=== PATIENT | female | born 1965 | race Caucasian/White ===

== ENCOUNTER 2020-09-01 14:54 | Outpatient (REF) | payer MEDICAID, SELFPAY ==
--- NOTE | 2020-09-01 14:20 | PAPFT_PTH ---
PATIENT: Leandro Boo LOC: [facility] U#:[id number] AGE/SX: 55/F ROOM: RE09/01/[address]: Mary Frey : 1965 BED: DIS: 09/01/2020 SPEC #: [id number] RECD: 09/02/20 13:06 STATUS: SHASHANK REOra #: [id number] LIZETT: 09/01/20 14:[address]: Mary Frey DEPT: [facility] Cytology RECD BY: Aileen Moreno Tissues: 1 - CX/ENDOCX FOR PAP SMEARS Procedures: PAP THIN PREP/UVM Screening HPV DNA PROBE Comments: [id number]
== END 2020-09-01 14:55 | disposition home or self-care (01) ==
LOC: NCHCN 14:54
PROVIDERS: PCP Family Medicine; Visit Provider Family Medicine
DX: Z12.4 Encounter for screening for malignant neoplasm of cervix (principal); Z11.51 Encounter for screening for human papillomavirus (HPV)
CPT/HCPCS: 88142; 87624

== ENCOUNTER 2021-10-22 08:48 | Outpatient (CLI) | payer MEDICAID, SELFPAY ==
--- NOTE | 2021-10-22 08:30 | DI.RAD_ITS ---
Exam(s) XR PELVIS AP EXAM: XR PELVIS AP CLINICAL HISTORY: THR planning. TECHNIQUE: 2D digital imaging was performed. One view is obtained. COMPARISON: CR XR HIP RT 2-3V* from 04/16/2021 FINDINGS: BONES: No acute fracture is present. No bony destructive lesion is seen. JOINTS: No dislocation present. There again seen advanced degenerative changes of the right hip with near complete loss of the superior joint space and subchondral cysts particularly in the acetabulum. The left hip is well maintained. Sclerotic changes are again seen at the symphysis pubis likely ref lecting osteitis pubis. SOFT TISSUE: Normal. IMPRESSION: Stable advanced degenerative changes of the right hip. DATA REPOSITORY: RADIATION DOSE DELIVERED:
== END 2021-10-22 08:49 | disposition home or self-care (01) ==
LOC: DIORS 08:49
PROVIDERS: PCP Family Medicine; Referring Provider Family Medicine; Visit Provider Physician Assistant
DX: M16.11 Unilateral primary osteoarthritis, right hip (principal)
CPT/HCPCS: 72170

== ENCOUNTER 2021-11-08 03:36 | Outpatient (CLI) | payer MEDICAID, SELFPAY ==
[2021-11-08 13:28] LABS: Source Nasal/Nares
[2021-11-08 20:00] LABS: COVID-19 PCR Negative (Negative)
== END 2021-11-08 03:37 | disposition home or self-care (01) ==
LOC: LBO 03:36
PROVIDERS: PCP Family Medicine; Visit Provider Student in an Organized Health Care Education/Training Program
DX: Z20.822 Contact with and (suspected) exposure to COVID-19 (principal)
CPT/HCPCS: 87635

== ENCOUNTER 2021-11-08 03:57 | Outpatient (CLI) | payer MEDICAID, SELFPAY ==
[2021-11-08 13:32] LABS: MCH 30.2 pg (27.0-33.0); MCHC 33.3 % (32.0-36.0); MCV 91 fL (80-95); MPV 8.8 fL (8.0-11.0); Platelet Count 263 10^3/uL (130-400); RBC 4.63 10^6/uL (3.93-5.22); RDW 11.9 % (11.7-14.6); RDW-SD 39.6 fL; WBC 5.43 10^3/uL (4.4-10.8)
[2021-11-08 14:05] LABS: Anion Gap 8.1 mmol/L (3-11); BUN 23 mg/dL (7-18); CO2 29.9 mmol/L (21.0-32.0); CREATININE 0.8 mg/dL (0.55-1.02); Calcium 9.4 mg/dL (8.5-10.1); Chloride 102 mmol/L (98-107); Glucose 113 mg/dL (74-106); Potassium 4.3 mmol/L (3.5-5.1); Sodium 140 mmol/L (136-145)
== END 2021-11-08 03:58 | disposition home or self-care (01) ==
LOC: LBO 03:57
PROVIDERS: PCP Family Medicine; Visit Provider Student in an Organized Health Care Education/Training Program
DX: M16.11 Unilateral primary osteoarthritis, right hip (principal); Z01.818 Encounter for other preprocedural examination; Z20.822 Contact with and (suspected) exposure to COVID-19
CPT/HCPCS: 36415; 80048; 85027

== ENCOUNTER 2021-11-10 05:49 | Day surgery (SDC) | payer MEDICAID, SELFPAY ==
[2021-11-10] VITALS (9 sets, daily range): BP systolic 95–115; BP diastolic 59–93; PULSE 58–70; RESP 8–20; TEMP 36–36.6; O2SAT 93–100; BMI 37.8
[2021-11-10] MEDS: Acetaminophen 500 MG TAB 1000 MG PO ×2 (06:34→14:30)
[2021-11-10] MEDS: Celecoxib 200 MG CAP 400 MG PO (06:34)
[2021-11-10] MEDS: Lactated Ringers 1,000 ML 80 ML IV (07:00)
--- NOTE | 2021-11-10 07:08 | W.ANESPRE ---
General Info Date of Service Date Performed: 11/10/21 Height: 5 ft 6.9 in Weight: 109.3 kg Body Mass Index (BMI): 37.8 Surgical Procedure: Operation Date: 11/10/21 07:50 Proposed Procedure Side Surgeon p Hip Total Hip Anterior ACTIS Right Sekou Cruz MD Meds Allergies and Home Medications Allergies Allergy/AdvReac Type Severity Reaction Status Date / Time No Known Allergies Allergy Verified 11/10/21 06:15 Home Medication Medication Instructions Recorded acetaminophen 500 mg tablet 1,000 mg PO Q8H PRN pain #90 tabs 11/10/21 aspirin 81 mg tablet,delayed 81 mg PO BID 30 days #60 tabs 11/10/21 release celecoxib 200 mg capsule (Celebrex) 200 mg PO BID #30 caps 11/10/21 docusate sodium 100 mg capsule 100 mg PO BID #30 caps 11/10/21 (Colace) oxycodone 5 mg tablet 5 mg PO Q6H PRN severe 11/10/21 post-operative pain #12 tabs pantoprazole 40 mg tablet,delayed 40 mg PO DAILY 14 days #14 tabs 11/10/21 release Current Visit Medications: Current Medications Generic Name Dose Route Start Last Admin Trade Name Freq PRN Reason Stop Dose Admin Acetaminophen 1,000 mg 11/10/21 06:00 11/10/21 06:34 Acetaminophen 500 Mg Tab PO 1,000 mg PREOP JEEVAN Administration Celecoxib 400 mg 11/10/21 06:00 11/10/21 06:34 Celecoxib 200 Mg Cap PO 400 mg PREOP JEEVAN Administration Tranexamic Acid 1,000 mg/ 60 mls @ 360 mls/hr 11/10/21 06:00 Sodium Chloride IV 11/10/21 18:00 PREOP JEEVAN Ringer's Solution 1,000 mls @ 80 mls/hr 11/10/21 06:00 IV 11/10/21 23:59 INFUSION JEEVAN Cefazolin Sodium/Dextrose 2 gm in 50 mls @ 100 mls/hr 11/10/21 06:00 Ancef Duplex IVPB 11/10/21 23:59 PREOP JEEVAN IV Miscellaneous Supplies 1 each 11/10/21 06:00 Iv Access IV 11/10/21 23:59 DIRECTED JEEVAN Sodium Chloride 0 ml 11/10/21 06:00 Normal Saline Flush 10 Ml Syr IV 11/10/21 23:59 PRN PRN Sodium Chloride 0 ml 11/10/21 06:00 Normal Saline 10 Ml Vial IJ 11/10/21 23:59 DIRECTED PRN Sterile Water 0 ml 11/10/21 06:00 Water,Injection,Sterile 10 Ml Vial IJ 11/10/21 23:59 DIRECTED PRN PFSH Active Problems Active Problems: Problem Status Onset Code Trochanteric bursitis M70.60 Hyperlipidemia E78.5 Prediabetes R73.03 Urinary, incontinence, stress female N39.3 Primary osteoarthritis of right hip M16.11 Medical History Medical History Anxiety Atypical chest pain Pt. states she had a negative stress test 11/04/21 Carpal tunnel syndrome Low back pain Obesity Surgical History Surgical History (Updated 11/10/21 @ 06:17 by Cary Dominguez) Hx of cone biopsy of cervix pt. not sure of name of procedure, biopsy of cervix done about 25 years ago Tobacco Smoking/Tobacco Use Status: Former Tobacco Use Alcohol Alcohol Intake: current Alcohol intake frequency: a few times a week Alcohol type: beer Substance Use Substance use: Never Substance use type: does not use Details: alcohol: t-4, one beer Vital Signs and Lab Results Vital Signs Most Recent Vital Signs in EMR: Most Recent Vital Signs Temp Pulse Resp BP Pulse Ox 36.5 C 70 20 114/83 97 11/10/21 06:25 11/10/21 06:25 11/10/21 06:25 11/10/21 06:25 11/10/21 06:25 Lab Results Blood Type / Crossmatch: No Data to Display Complete Blood Count: White Blood Count 5.43 10^3/uL (4.4-10.8) 11/08/21 13:10 Red Blood Count 4.63 10^6/uL (3.93-5.22) 11/08/21 13:10 Hemoglobin 14.0 g/dL (11.2-15.7) 11/08/21 13:10 Hematocrit 42.0 % (36.0-46.0) 11/08/21 13:10 Platelet Count 263 10^3/uL (130-400) 11/08/21 13:10 Complete Metabolic Panel: Sodium Level 140 mmol/L (136-145) 11/08/21 13:10 Potassium Level 4.3 mmol/L (3.5-5.1) 11/08/21 13:10 Chloride Level 102 mmol/L (98-107) 11/08/21 13:10 Carbon Dioxide Level 29.9 mmol/L (21.0-32.0) 11/08/21 13:10 Blood Urea Nitrogen 23 mg/dL (7-18) H 11/08/21 13:10 Creatinine 0.8 mg/dL (0.55-1.02) 11/08/21 13:10 Estimated GFR/1.73 m2 >= 60.00 (mL/min/1.73m2) 11/08/21 13:10 Calcium Level 9.4 mg/dL (8.5-10.1) 11/08/21 13:10 Glucose Level 113 mg/dL (74-106) H 11/08/21 13:10 Liver Function Panel: No Data to Display Coagulation Panel: No Data to Display Cardiac Panel: No Data to Display Arterial Blood Gas: No Data to Display Venous Blood Gas: No Data to Display Pancreas Panel: No Data to Display Thyroid Panel: No Data to Display Infectious Disease: Coronavirus (COVID-19)(PCR) Negative (Negative) 11/08/21 12:42 Coronavirus 2019 Source Nasal/Nares 11/08/21 12:42 Blood Cultures: No Data to Display Toxicology Panel: No Data to Display Anesthesia Assessment and Plan Anesthesia History Personal History: No History of Anesthesia Complications and No History of General Anesthesia Family History: No Family History of Anesthesia Complications Exercise Tolerance Exercise Tolerance: Metabolic Equivalents>4 Pertinent Negatives Pertinent Negatives: No Symptoms of GERD, No Major Pulmonary Symptoms or Complaints (Quit cigarette smoker 2003) and No History of CVA/TIA Cardiac & Pulmonary Exam Cardiac Exam: Normal S1/S2 Heart Sounds Pulmonary Exam: Clear Bilateral Breath Sounds Implantable Cardiac Device Does patient have a Pacemaker or an ICD?: No Airway Exam Known Difficult Airway: No Mallampati Class: 1 Mouth Opening: Normal (> 3cm) Thyromental Distance: Greater than 3 cm Neck Range of Motion: Full ROM Neck Circumference: Normal Teeth Condition: Normal Dentition ASA Classification ASA Score: ASA 2 Emergency Case?: No NPO Status NPO Status: NPO Clears >2 hours, Solids >8 hours Anesthesia Plan Resuscitation Status: Full Code Anesthesia Technique: Spinal Anesthesia Airway Planned: Natural Airway Monitors Used: Standard Monitors
--- NOTE | 2021-11-10 07:17 | W.PM.DS.N ---
Date of service: 11/10/21 Time of Service: 11:41 DS: Diagnosis Discharge Diagnosis (1) Primary osteoarthritis of right hip: Status: Acute Discharge Plan Disposition Patient Disposition: HOME Condition: Good Discharge Details Reason For Visit: Right Hip Arthritis Attending Provider: Sekou Cruz Primary Care Provider: Mary Frey Home Meds and New Rx's Prescriptions: New celecoxib [Celebrex] 200 mg capsule 200 mg PO BID Qty: 30 0RF aspirin 81 mg tablet,delayed release (DR/EC) 81 mg PO BID 30 Days Qty: 60 0RF acetaminophen 500 mg tablet 1,000 mg PO Q8H PRN Qty: 90 0RF Rx Instructions: Take two tablets up to every 8 hours as needed for pain pantoprazole 40 mg tablet,delayed release (DR/EC) 40 mg PO DAILY 14 Days Qty: 14 0RF docusate sodium [Colace] 100 mg capsule 100 mg PO BID Qty: 30 0RF oxycodone 5 mg tablet 5 mg PO Q6H PRN (Reason: severe post-operative pain) Qty: 12 0RF Rx Instructions: Take one tablet up to every 6 hours as needed for severe pain Discontinued naproxen 500 mg tablet 500 mg PO BID PRN acetaminophen 500 mg Tablet 1,000 mg PO TID PRN Discharge Instructions Additional Instructions: Total Hip Discharge Instructions Activity: The most important activity is to walk. You should try to take short walks a few times a day. You have no restrictions on movement or positioning, but do not try to force what you do. You will find some stiffness and weakness with hip flexion (lifting your knee). Do not try to strengthen this too early, continue to practice walking and stairs and this will come. - Outpatient physical therapy can be helpful to help return you to a normal gait and improve your flexibility and strength. This can start around 2 weeks. For some patients, it?s not necessary. Usually this is determined at the time of discharge or at the first post-operative visit. - You should wear the SUNNI hose on both legs for 2 weeks. Dressing: Keep the surgical dressing in place for at least one week. After the first week it may be removed and replace with light gauze and tape or nothing. It may get wet after 3 days but avoid soaking the dressing. If it gets wet, just lightly pat dry. It is important to always keep some gauze between skin folds, especially when you are sitting. Spend some time with the wound exposed when you are lying flat as the incision does wrinkle onto itself. Medications: - You should take Tylenol and an anti-inflammatory Celebrex as your primary pain control medications. If the Celebrex is too expensive or not covered, please call the office for another alternative (Advil/Ibuprofen or Naproxen/Aleve). - You have been prescribed a stronger pain medication Oxycodone for breakthrough pain, take as needed as prescribed. - You have also been prescribed a stomach acid reduction agent Pantoprozole to help reduce stomach acid and reflux. - You will be taking Aspirin 81mg twice a day for DVT prevention unless instructed otherwise. - If you have constipation you should take Colace (which has been prescribed) or Miralax (which was available [id number]). It takes most people 3-4 days to have a bowel movement. Follow-up: 2 weeks If you have any acute concerns or questions, please do not hesitate to contact the office at [phone]. You may contact Dr. Cruz with any questions after hours through the hospital at [phone] or on his cell phone at [phone]. Referrals: Sekou Cruz MD [ [facility] STAFF PHYSICIAN] - Equipment/Supplies: Walker Activity:: Activity as Tolerated Remove Dressings/Wound Care:: Do Not Remove Diet:: As Tolerated Discharge Orders Discharge Orders: Discharge Order (Routine); Ordered 11/10/21 Ordered By: Sekou Cruz DS: Summary Time Spent with Patient providing and/or coordinating discharge services: Less than 30 minutes Status at Discharge Functional status at discharge: uses cane/walker Overall status at discharge: patient is progressing back to baseline Mental Status: mental status grossly normal Speech and Movement: speech and movement normal Mood: congruent mood Affect: normal affect Exam Psych Mental Status: mental status grossly normal Speech and Movement: speech and movement normal Mood: congruent mood Affect: normal affect DS: Data Vitals/I&O Vitals and I&O: Vital Signs Temperature 97.7 F 11/10/21 06:25 Pulse 70 11/10/21 06:25 Pulse Rhythm Regular 11/10/21 06:25 Respiratory Rate 20 11/10/21 06:25 Blood Pressure 114/83 11/10/21 06:25 Pulse Oximetry 97 11/10/21 06:25 Oxygen Delivery Method Room Air 11/10/21 06:25 Oxygen Flow Rate 0 11/10/21 06:25 Pain Level 3 11/10/21 06:25 Intake & Output 11/09/21 11/09/21 11/10/21 11:59 23:59 11:59 Weight 239 lb 0.015 oz 240 lb 15.444 oz PFSH All Active Problems Trochanteric bursitis (Acute) Hyperlipidemia (Acute) Prediabetes (Acute) Urinary, incontinence, stress female (Acute) Primary osteoarthritis of right hip (Acute) Medical History Anxiety Atypical chest pain Pt. states she had a negative stress test 11/04/21 Carpal tunnel syndrome Low back pain Obesity Surgical History (Updated 11/10/21 @ 06:17 by Cary Dominguez) Hx of cone biopsy of cervix pt. not sure of name of procedure, biopsy of cervix done about 25 years ago Social History (Updated 10/28/21 @ 13:12 by Nighat Ferrera) Smoking/Tobacco Use Status: Former Tobacco Use tobacco type: cigarettes Quit Date: 03/20/03 Pack-years: 18 Smoking risk assessment performed?: Yes Alcohol Intake: current Alcohol Intake frequency: a few times a week Alcohol type: beer Drug use: Never Substance use type: does not use Details: alcohol: t-4, one beer Do you feel safe at home: Yes Do you feel safe in your relationship?: Yes Additional Social history: unable to assess privately
[2021-11-10] MEDS: ceFAZolin 2 GM/50 ML BAG IVPB (07:45)
--- NOTE | 2021-11-10 09:06 | DI.RAD_ITS ---
Exam(s) XR HIP RT IN OR EXAM: XR HIP RT IN OR CLINICAL HISTORY: Primary osteoarthritis of right hip. TECHNIQUE: 2D digital imaging was performed. COMPARISON: No exams were available for comparison FINDINGS: Fluoroscopy was provided during right hip arthroplasty. See procedure report for details. Total fluoroscopy time 59 seconds Human to of dose= 11.307mGy IMPRESSION: DATA REPOSITORY: RADIATION DOSE DELIVERED:
--- NOTE | 2021-11-10 10:37 | W.ANESPRE ---
General Info Date of Service Date Performed: 11/10/21 Height: 5 ft 6.9 in Weight: 109.3 kg Body Mass Index (BMI): 37.8 Surgical Procedure: Operation Date: 11/10/21 07:50 Proposed Procedure Side Surgeon p Hip Total Hip Anterior ACTIS Right Sekou Cruz MD Meds Allergies and Home Medications Allergies Allergy/AdvReac Type Severity Reaction Status Date / Time No Known Allergies Allergy Verified 11/10/21 06:15 Home Medication Medication Instructions Recorded acetaminophen 500 mg tablet 1,000 mg PO Q8H PRN pain #90 tabs 11/10/21 aspirin 81 mg tablet,delayed 81 mg PO BID 30 days #60 tabs 11/10/21 release celecoxib 200 mg capsule (Celebrex) 200 mg PO BID #30 caps 11/10/21 docusate sodium 100 mg capsule 100 mg PO BID #30 caps 11/10/21 (Colace) oxycodone 5 mg tablet 5 mg PO Q6H PRN severe 11/10/21 post-operative pain #12 tabs pantoprazole 40 mg tablet,delayed 40 mg PO DAILY 14 days #14 tabs 11/10/21 release Current Visit Medications: Current Medications Generic Name Dose Route Start Last Admin Trade Name Freq PRN Reason Stop Dose Admin Acetaminophen 1,000 mg 11/10/21 14:00 Acetaminophen 500 Mg Tab PO TID JEEVAN Aspirin 81 mg 11/10/21 20:00 Aspirin E.C. 81 Mg Tabec PO BID JEEVAN Celecoxib 200 mg 11/10/21 20:00 Celecoxib 200 Mg Cap PO BID JEEVAN Docusate Sodium 100 mg 11/10/21 07:10 Docusate Sodium 100 Mg Cap PO BID PRN PRN Constipation Hydromorphone HCl 0.5 mg 11/10/21 07:10 Hydromorphone 2 Mg/Ml Vial IVP Q2H PRN PRN Ringer's Solution 1,000 mls @ 80 mls/hr 11/10/21 06:00 11/10/21 09:29 IV 11/10/21 23:59 80 mls/hr INFUSION [facility] Infusion Cefazolin Sodium/Dextrose 1 gm in 50 mls @ 100 mls/hr 11/10/21 16:00 Ancef Duplex IVPB 11/11/21 08:29 Q8H [facility] IV Miscellaneous Supplies 1 each 11/10/21 06:00 Iv Access IV 11/10/21 23:59 DIRECTED JEEVAN Ondansetron HCl 4 mg 11/10/21 07:10 Ondansetron 4 Mg/2 Ml Vial IVP Q6H PRN PRN Nausea Oxycodone HCl 0 mg 11/10/21 07:10 Oxycodone 5 Mg Tab PO Q3H PRN PRN Pain Pantoprazole Sodium 40 mg 11/11/21 07:30 Pantoprazole 40 Mg Tabcr PO DAILY@0730 JEEVAN Polyethylene Glycol 17 gm 11/10/21 07:10 Polyethylene Glycol 3350 17 Gm Packet PO BID PRN PRN Constipation Sodium Chloride 0 ml 11/10/21 06:00 Normal Saline Flush 10 Ml Syr IV 11/10/21 23:59 PRN PRN Sodium Chloride 0 ml 11/10/21 06:00 Normal Saline 10 Ml Vial IJ 11/10/21 23:59 DIRECTED PRN Sterile Water 0 ml 11/10/21 06:00 Water,Injection,Sterile 10 Ml Vial IJ 11/10/21 23:59 DIRECTED PRN PFSH Active Problems Active Problems: Problem Status Onset Code Trochanteric bursitis M70.60 Hyperlipidemia E78.5 Prediabetes R73.03 Urinary, incontinence, stress female N39.3 Primary osteoarthritis of right hip M16.11 Medical History Medical History Anxiety Atypical chest pain Pt. states she had a negative stress test 11/04/21 Carpal tunnel syndrome Low back pain Obesity Surgical History Surgical History (Updated 11/10/21 @ 06:17 by Cary Dominguez) Hx of cone biopsy of cervix pt. not sure of name of procedure, biopsy of cervix done about 25 years ago Tobacco Smoking/Tobacco Use Status: Former Tobacco Use Alcohol Alcohol Intake: current Alcohol intake frequency: a few times a week Alcohol type: beer Substance Use Substance use: Never Substance use type: does not use Details: alcohol: t-4, one beer Vital Signs and Lab Results Vital Signs Most Recent Vital Signs in EMR: Most Recent Vital Signs Temp Pulse Resp BP Pulse Ox 36.1 C L 62 16 112/93 H 95 11/10/21 10:08 11/10/21 10:08 11/10/21 10:08 11/10/21 10:08 11/10/21 10:05 Lab Results Blood Type / Crossmatch: No Data to Display Complete Blood Count: White Blood Count 5.43 10^3/uL (4.4-10.8) 11/08/21 13:10 Red Blood Count 4.63 10^6/uL (3.93-5.22) 11/08/21 13:10 Hemoglobin 14.0 g/dL (11.2-15.7) 11/08/21 13:10 Hematocrit 42.0 % (36.0-46.0) 11/08/21 13:10 Platelet Count 263 10^3/uL (130-400) 11/08/21 13:10 Complete Metabolic Panel: Sodium Level 140 mmol/L (136-145) 11/08/21 13:10 Potassium Level 4.3 mmol/L (3.5-5.1) 11/08/21 13:10 Chloride Level 102 mmol/L (98-107) 11/08/21 13:10 Carbon Dioxide Level 29.9 mmol/L (21.0-32.0) 11/08/21 13:10 Blood Urea Nitrogen 23 mg/dL (7-18) H 11/08/21 13:10 Creatinine 0.8 mg/dL (0.55-1.02) 11/08/21 13:10 Estimated GFR/1.73 m2 >= 60.00 (mL/min/1.73m2) 11/08/21 13:10 Calcium Level 9.4 mg/dL (8.5-10.1) 11/08/21 13:10 Glucose Level 113 mg/dL (74-106) H 11/08/21 13:10 Liver Function Panel: No Data to Display Coagulation Panel: No Data to Display Cardiac Panel: No Data to Display Arterial Blood Gas: No Data to Display Venous Blood Gas: No Data to Display Pancreas Panel: No Data to Display Thyroid Panel: No Data to Display Infectious Disease: Coronavirus (COVID-19)(PCR) Negative (Negative) 11/08/21 12:42 Coronavirus 2019 Source Nasal/Nares 11/08/21 12:42 Blood Cultures: No Data to Display Toxicology Panel: No Data to Display Anesthesia Assessment and Plan Anesthesia History Personal History: No History of Anesthesia Complications Family History: No Family History of Anesthesia Complications Exercise Tolerance Exercise Tolerance: Metabolic Equivalents>4 Pertinent Negatives Pertinent Negatives: No Symptoms of GERD, No Major Cardiovascular Symptoms or Complaints, No Major Pulmonary Symptoms or Complaints (Smoker less than half a pack a day) and Other (Diabetes insulin pump) Cardiac & Pulmonary Exam Cardiac Exam: Normal S1/S2 Heart Sounds Pulmonary Exam: Clear Bilateral Breath Sounds Implantable Cardiac Device Does patient have a Pacemaker or an ICD?: No Airway Exam Known Difficult Airway: No Mallampati Class: 1 Mouth Opening: Normal (> 3cm) Thyromental Distance: Greater than 3 cm Neck Range of Motion: Full ROM Neck Circumference: Normal Teeth Condition: Normal Dentition ASA Classification ASA Score: ASA 2 Emergency Case?: No NPO Status NPO Status: NPO Clears >2 hours, Solids >8 hours Anesthesia Plan Resuscitation Status: Full Code Anesthesia Technique: General Anesthesia Airway Planned: Natural Airway Monitors Used: Standard Monitors
--- NOTE | 2021-11-10 10:47 | W.ANESPOSTOP ---
Postoperative Evaluation Date, Time and Location Date Performed: 11/10/21 Time Performed: 10:48 Patient Location: Day Surgery Unit Vital Signs Most Recent Imported Vital Signs: Most Recent Vital Signs Temp Pulse Resp BP Pulse Ox 36.1 C L 62 12 112/93 H 98 11/10/21 10:08 11/10/21 10:08 11/10/21 10:08 11/10/21 10:08 11/10/21 10:08 Pain Score Most Recent Pain Score: Most Recent Pain Score Pain Level 0 11/10/21 10:08 Assessment Mental Status: Awake (Alert & Oriented to Patient Baseline) Airway and Respiratory Function: Patent airway with normal (patient baseline) respiratory exam Cardiovascular Function: Hemodynamically Stable Hydration Status: Adequately Hydrated Nausea & Vomiting: No Nausea or Vomiting Pain: Pt. Denies Any Pain Peripheral Nerve Block: Patient did not receive a nerve block
--- NOTE | 2021-11-10 11:38 | PT.INIE ---
Date of service: 11/10/21 Time of Service: 11:38 PT Notes Visit Reasons: Right Hip Arthritis Physical Therapy Day Surgery Initial Evaluation Date: 11/10/2021 Referring Doctor: FLORIN Porter PT Orders: PT CONSULT: S/P Ortho surgery Precautions: WBAT on right LE with AD. Patient Profile/Admitting Diagnosis: Yesenia is a 56-year-old female with primary osteoarthritis of the right hip and is status post right anterior total hip arthroplasty on postoperative day 0. PMHX: Medical History?(Updated 10/22/21 @ 08:38 by FLORIN Ledezma) Anxiety Atypical chest pain Carpal tunnel syndrome Low back pain Obesity Social History/Home Situation: Lives with in a private home with 3 steps to enter without rails. Independent with all ADLs prior to surgery. Equipment Owned/DME: [facility] Subjective: Agreeable to PT consult. Reports numbness in bilateral feet and gluteal areas. Anxious about getting up. Denies headache, chest pain, and lightheadedness throughout session. Objective: General Observation: Supine in bed. Mepilex Ag over surgical incision. TEDS to both legs. Mental Status: Alert and oriented x 4 Pain: 1-2/10 in the R hip ROM: Right Lower Extremity: Hip flexion WFL. Hip abduction WFL. Knee flexion WFL. Ankle dorsiflexion WFL. Ankle plantarflexion WFL. Left Lower Extremity: Hip flexion WFL. Hip abduction WFL. Knee flexion WFL. Ankle dorsiflexion WFL. Ankle plantarflexion WFL. Strength: Right Lower Extremity: Hip flexors 4/5. Hip abductors 4-/5. Knee flexors 4-/5. Knee extensors 4-/5. Ankle dorsiflexors 4-/5. Ankle plantarflexors 4-/5. Left Lower Extremity: Hip flexors 4/5. Hip abductors 4-/5. Knee flexors 4-/5. Knee extensors 4-/5. Ankle dorsiflexors 4-/5. Ankle plantarflexors 4-/5. Sensation: Numbness to B feet and gluteal areas Bed Mobility/Transfers: Supine to sit stand by assist Sit to stand minimal assist Stand to sit contact guard assist Bed to chair contact guard assist Gait: Tolerated 150 feet of level surface ambulation ising the FWW with step-to gait pattern requiring stand by assist with moderate cueing for walker management and safe gait pattern. No report of increased pain in R hip. No shortness of breath. No loss of balance. Numbness in B feet and gluteal areas diminished with activity. Balance: Static Sitting: Normal Dynamic Sitting: Good Static Standing: Fair Dynamic Standing: Fair Special Tests: Mobility Limitations Standardized Measure [facility] AM-PAC 6 clicks Basic Mobility Inpatient Short Form: Raw Score: 19 CMS Score: 42% deficit Informed Consent/Education: Patient instructed in purpose of PT consult. Education and training on initial set of exercises that can be done at home have been completed with patient in reference to the [employer] maryjane. Assessment: Numbness diminished with mobilization. Moderate verbal cueing needed for safe walker mechanics. Answered questions regarding positioning, exercise progression, and walker use. Patient presents with clinical signs and symptoms consistent with current/admitting diagnoses that have resulted to mobility limitations, gait instability, generalized weakness, and impairment of motor control as demonstrated by the following impairment level findings: 1. Decreased strength to right hip major muscle groups 2. Impaired standing balance 3. Limitation of joint range of motion in right hip Impairments are contributing to the following functional limitations: 1. Inability to safely ambulate without assistive device 2. Increase completion time for mobility ADL performance 3. Increased fall risk Patient is assessed as a 18712 moderate complexity based on the following: History: 56-year-old femalewith impairment level findings, functional limitations, and past medical history as indicated above Examination: Demonstrable impairment in strength, balance, and mobility level with underlying impairments and functional limitations as documented above Presentation: Evolving Decision Makin moderate complexity Goals: N/A. PT evaluation and 1-2 treatment sessions only for functional mobility training using recommended AD and for HEP instruction. Plan of Care/Treatment Plan: N/A. PT evaluation and 1-2 treatment session only for functional mobility training using recommended AD and for HEP instruction. DISCHARGE RECOMMENDATIONS: [] Home with no services [] [] Home with services [specify] [X] Home with outpatient PT. Home when medically cleared by orthopedic surgeon. Will benefit from outpatient PT services in order to facilitate return to independent ADL performance and community ambulation without an assistive device. [] SNF for continued rehabilitation [] [] Custodial Care [] [] SNF versus LTC based on ability to participate and progress [] TREATMENT CODE/TIME: 91028 x 20 minutes, 85590 x 38 minutes beginning at 11:38 AM. Thank you for the opportunity to participate in the care of this patient. Ermelinda Guillen PT, DPT, CLT [facility] [place], [place]
--- NOTE | 2021-11-10 20:56 | W.PM.OP ---
Date of service: 11/10/21 Operative Note Operative Note DATE OF PROCEDURE: 11/10/21 PRE-OP DIAGNOSIS: Right Hip Osteoarthritis POST-OP DIAGNOSIS: same PROCEDURE: Right Anterior Total Hip Arthroplasty with Intraoperative Navigation SURGEON: Sekou Cruz AUTOMOTIVE DRIVABILITY TECHNICIAN: Nighat Ferrera ANESTHESIA TYPE: Spinal Refer to Anesthesia Record ESTIMATED BLOOD LOSS: 500 PATHOLOGY: none sent TOURNIQUET TIME: 0 COMPLICATIONS: None Patient was transported to: PACU Patient's condition: stable Implants: 1. Depuy [place] Acetabular Component, 56mm 2. Depuy Acetabular Liner, [id number] 3. Depuy Actis Standard Collared Femoral Stem, Size 6 4. Depuy Altrx Ceramic Femoral Head, Size 36+1.5mm Indications: I have seen Yesenia in clinic for symptoms of hip arthritis, confirmed with radiographic findings. She has exhausted nonoperative methods and was having significant limitations in daily function and desired better function and less pain. I discussed the technical details of a hip replacement. I explained the risks of the procedure to include, but not limited to, bleeding, infection, pain, stiffness, fracture, damage to nerves and vessels, damage to muscles and tendons, loosening, instability, leg length inequality, need for repeat procedure, blood clot and cardiopulmonary demise. Despite these risks, Yesenia elected to proceed. Findings: There was significant signs of arthritis throughout the hip. There was notable synovitis throughout the hip. Procedure Description: Yesenia was greeted in the preoperative holding area where the correct side was identified and marked. The consent was reviewed with the patient and signed. The history and physical was updated. All questions were answered. She was taken back to the operating room. A spinal anesthestic was then administered. The feet were wrapped with cast padding and Coban and then placed into the boot liners and then into the boots. Care was taken to protect the skin and make sure the heels were fully down and the boots were stable. The patient was then positioned onto the HANA table. Both legs were held in a neutral position. SCDs were applied. The patient was then slid down onto a peroneal post. Prophylactic antibiotics in the form of Cefazolin were administered. 1g of Tranxemic Acid was given intravenously within 30 minutes of incision. The right leg was then prepped with Chloraprep and draped in a standard fashion. A second prep with Chloraprep was performed prior to placement of a shower-curtain type drape with Iodine impregnated skin protection. A timeout to confirm correct identity, side and site, procedure, allergies, anesthesia, and medical concerns was performed. An obliquely oriented incision was made starting lateral to the ASIS and running distal over the Tensor Fascia April (TFL) muscle belly toward the fibular head, approximately 10cm. The skin and soft tissue was dissected sharply, through Bill?s fascia, and to the fascia of the TFL. With the fascia and superior border of the IT band identified, the fascia was incised with a new knife just above any perforators from the IT band. The TFL muscle belly was bluntly dissected away from the fascia and moved laterally. The fat between TFL and rectus was identified to ensure the dissection was not within the TFL. Blunt dissection created space between abductors and the capsule and retractor was placed over the lateral femoral neck. The fibers of the rectus femoris tendon were identified and these were freed from the anterior capsule. A second cobra retractor was placed around the medial femoral neck. The TFL was further retracted laterally to show the deep fascia. Careful dissection through this layer identified three main crossing vessels of the lateral femoral circumflex. These were cauterized in multiple locations and then cut without any noticeable bleeding. The TFL was further released bluntly from the deep fascia to expose anterior hip capsule and fat The Billy orthopaedic retractor was then placed beneath the TFL and against sartorius and medial soft tissues to protect and retract the soft tissues. A T-capsulotomy was then performed starting at the superior lateral acetabulum and moving distally to the intertrochanteric ridge. These capsular flaps were tagged with a No. 1 Ethibond and elevated from within. The capsular flaps were released to the shoulder of the lateral neck and to the lesser trochanter to give excellent visualization of the proximal femur. A neck osteotomy was performed using an oscillating saw based on preoperative templates. This cut started in the shoulder and of the lateral neck and exited medially. The saw was at all times directed medially to avoid injury to the greater trochanter. Gross traction was applied to the leg and the osteotomy opened. The femoral head was removed with a corkscrew, making sure to protect the TFL on its exit. Traction was released after head removal. This was measured on the back table to determine the starting reamer size. Portions of the rectus obscuring visualization were minimally elevated off the superior acetabulum. An anterior retractor was placed over the anterior wall between capsule and labrum and attached to the Gripper retraction system. The femur was rotated to 90 degrees and medial capsule was fully released until the lesser trochanter was palpable and visible; the femur was returned to 30 degrees. A posterior retractor was placed similarly between capsule and labrum. This provided excellent visualization. The contents of the cotyloid fossa were removed with electrocautery and the labrum was removed with a knife. There was notable synovitis throughout the hip which was resected. There was a notable floor osteophyte. There was significant chondromalacia of the superior acetabulum. Acetabular reaming began with a 50mm reamer. This first reaming was directed anterior to posterior and medial to get down to the true floor. This was inspected and reamed until the true floor was reached. The anterior retractor was then released and entry and exit was provided by traction on the capsular flaps. I then reamed sequentially up to a 56mm reamer where good fit was obtained. The larger reamers were oriented based on anatomical reference of the anterior and lateral atkins to ensure proper abduction and anteversion. Positioning and size was confirmed with the fluoroscopy. A 56mm Depuy [place] acetabular component was selected. The acetabulum was reamed around the periphery with the selected acetabular size to prevent a rim fit. The deep tissues were irrigated. The acetabular component was then impacted in a position of about 40-45 degrees of abduction and 15-20 degrees of anteversion, using the patient?s anatomy as the ultimate landmark. Fluoroscopy was used to confirm this. There was excellent demurrage agent of the acetabular component and the inserting handle was removed. A primary acetabular screw was placed into the ilium by drilling through one of the holes in the acetabular component. This was measured and an appropriately sized screw was placed with excellent purchase. It was checked not to be proud. The acetabular liner, Depuy [id number] polyethylene liner, was inserted and lined up with the tines of the acetabular component. There was no soft tissue interposition. The liner was then impacted into position and confirmed to be well-seated. A portion of the ramana-articular cocktail was then injected around the acetabulum into the capsule and periosteum. This cocktail consisted of 123mg of Ropivacaine, 0.25mg of Epinephrine, 0.04mg of Clonidine, and 15mg of Ketorolac, diluted to 50cc. The leg was rotated to 120 degrees. Any remaining medial capsule was released until the lesser trochanter was easily palpable. A retractor was placed medially. The lateral capsule was further released into the shoulder to allow access to the greater trochanter. A Goddard retractor was placed over the greater trochanter which allowed the trochanter to flip in front of the capsule for excellent exposure. The leg was brought down into maximal extension and 20 degrees of adduction while ensuring there was no impingement on the acetabulum. Any remnant capsule within the trochanter was released. Piriformis and obturator externis were identified and protected. There was excellent access to the proximal femur. The lateral neck remnant was removed with a rongeur. A blunt canal probe was used to identify the canal and trajectory for later broaching. A box osteotome initiated the broach course. A small curved rasp and a curved curette were used to work laterally. Broaching then began with a size 8 Corail broach. This was inserted manually around the trochanter and into the canal before mallet blows. The broach was seated to the neck cut level based on the neck cut and the preoperative template. Sequential broaching was continued with the [employer] pneumatic broaching device until a tight fit was obtained with good rotational control of the femur. A trial standard neck was inserted along with a +1.5 trial head. The leg was brought out of extension and adduction and then reduced with traction and internal rotation. The leg was stable anteriorly in a position of 30 degrees of extension and 90 degrees of external rotation. Fluoroscopy was used to ensure there was no fracture and the stem was seated well. Leg lengths were checked with an AP pelvis and pelvic reference points. Extra Life navigation system was used to confirm appropriate positioning and leg length and offset. This did not reconstitute leg length enough and therefore the plan was to go up and size and potentially leave the implant a little proud rather than go up in neck size to prevent significant over offset. Once content with the desired offset and leg lengths, the leg was brought back into extension, external rotation and adduction. The periosteum and surrounding tissue was injected with remaining portion of the ramana-articular cocktail. The proximal femur was irrigated as well as the deep tissues. The [place] DigiMeldis Standard collared stem, size 6, was then manually inserted into the proximal femur making sure to control rotation. It was then malleted into position with light blows, giving breaks to allow bone expansion and decrease risk of fracture. The selected Depuy Altrx Ceramic Head, size 36+1.5mm, was then placed onto the clean and dry trunnion and secured with impaction onto the tapered fit. The leg was brought back out of extension and adduction and reduced with traction and internal rotation. Stability was confirmed with no shuck at 90 degrees of external rotation and 30 degrees of extension. No impingement through range of motion arc. Final x-ray images were obtained with fluoroscopy to confirm adequate positioning and no intraoperative fracture. The deep tissues were thoroughly irrigated with Surgiphor, betadine solution. This was allowed to sit in the wound for 3 minutes before being thoroughly irrigated out with normal saline. The capsule was then reapproximated with the previously placed Ethibond sutures. The TFL fascia was finally closed with a No. 2 Stratafix, barbed suture. Deep tissues were then reapproximated with 0 Vicryl and a running 2-0 Vicryl. The skin was closed with a running 4-0 Monocryl in a subcuticular fashion. This was reinforced with skin glue. A Mepilex silver dressing was applied. At the end of the case, all counts were correct. Yesenia was transferred to the hospital bed without difficulty and suffering no apparent complication. Yesenia has a good prognosis. Physical therapy will start today and without restrictions, weight-bearing as tolerated. Aspirin 81mg BID will be used for DVT prophylaxis.
== END 2021-11-10 15:01 | disposition home or self-care (01) ==
PROVIDERS: PCP Family Medicine; Visit Provider Student in an Organized Health Care Education/Training Program
PROC: (CPT 27130; principal; 2021-11-10 07:30)
DX: M16.11 Unilateral primary osteoarthritis, right hip (principal); E78.5 Hyperlipidemia, unspecified; R73.03 Prediabetes; E66.9 Obesity, unspecified; Z68.37 Body mass index [BMI] 37.0-37.9, adult
CPT/HCPCS: 27130; 20985; 97162; 97530; 73501; J0690; J1100; J2250; J2405

== ENCOUNTER 2021-11-25 11:29 | Outpatient (CLI) | payer MEDICAID, SELFPAY ==
--- NOTE | 2021-11-25 11:00 | DI.RAD_ITS ---
Exam(s) XR HIP RT COMPLETE AP PELVIS EXAM: XR HIP RT COMPLETE AP PELVIS CLINICAL HISTORY: 1st post op R [facility]. TECHNIQUE: 2D digital imaging was performed. Two images were obtained. AP, lateral and oblique view s were obtained. COMPARISON: CR XR PELVIS AP from 10/22/2021 XA XR HIP RT IN OR from 11/10/2021 FINDINGS: BONES: There are stable post operative changes present. No fracture or dislocation. JOINTS: The orthopedic hardware is in good position. SOFT TISSUE: Normal. IMPRESSION: Stable postoperative changes. DATA REPOSITORY: RADIATION DOSE DELIVERED:
== END 2021-11-25 11:30 | disposition home or self-care (01) ==
LOC: DIORS 11:29
PROVIDERS: PCP Family Medicine; Visit Provider Student in an Organized Health Care Education/Training Program
DX: Z96.641 Presence of right artificial hip joint (principal); Z47.1 Aftercare following joint replacement surgery
CPT/HCPCS: 73502

== ENCOUNTER 2022-11-10 11:16 | Outpatient (CLI) | payer MEDICAID, SELFPAY ==
--- NOTE | 2022-11-10 11:00 | DI.RAD_ITS ---
Exam(s) XR HIP RT AP LAT ONLY EXAM: XR HIP RT AP LAT ONLY CLINICAL HISTORY: ANNUAL F/U R [facility]. TECHNIQUE: 2D digital imaging was performed. COMPARISON: CR XR HIP RT COMPLETE AP PELVIS from 11/25/2021 FINDINGS: Views. Satisfactory position alignment of the components of the right hip prosthesis. No fracture nor loose moises evident. IMPRESSION: Stable satisfactory appearance of right hip prosthesis. DATA REPOSITORY: RADIATION DOSE DELIVERED:
== END 2022-11-10 11:17 | disposition home or self-care (01) ==
LOC: DIORS 11:16
PROVIDERS: PCP Family Medicine; Visit Provider Student in an Organized Health Care Education/Training Program
DX: Z96.641 Presence of right artificial hip joint (principal); Z47.1 Aftercare following joint replacement surgery
CPT/HCPCS: 73502